=== PATIENT | female | born 1970 | race Two or more races ===

== ENCOUNTER → 2016-11-04 | Outpatient (CLI) | payer OTHER ==
--- NOTE | 2016-11-04 11:56 | MA ---
Screening Digital Mammogram With iCAD Analysis Clinical Indications: Routine screening. Patient has had benign breast biopsies. Technique: Standard cephalocaudal and mediolateral oblique projections are obtained. The examination is processed by the iCAD computer-aided detection system. Comparison: September, September 2013, August 2012, August 2011, May 2008. Breast density: Type C; Heterogeneously dense. Findings: CAD was reviewed. Nodular asymmetries bilaterally are stable. There are no masses, suspicio us calcifications or other signs of malignancy. There has been no significant change in the appearanc e of either breast. Impression: Benign mammography, BI-RADS 2. Recommendation: Routine screening in one year, as long as physical examination is benign, in this pat ient with heterogeneously dense breast parenchyma. [facility] will send a result letter to the patient. Dense breast parenchyma diminishes mammographic sensitivity. Negative mammography should not preclude additional workup of a clinically suspicious finding. The patient's information is entered into a reminder system with a target due date for her next mammo gram.
== END ==
LOC: CIMAGING 09:39
PROVIDERS: ATTEND Family Medicine
DX: Z12.31 Encounter for screening mammogram for malignant neoplasm of breast (principal)
CPT/HCPCS: G0202

== ENCOUNTER → 2017-12-04 | Outpatient (CLI) | payer OTHER | LOC: CIMAGING 09:15 | PROVIDERS: ATTEND Family Medicine | DX: Z12.31 Encounter for screening mammogram for malignant neoplasm of breast (principal) ==

== ENCOUNTER 2019-01-26 05:24 | Emergency (ER) | payer OTHER ==
--- NOTE | 2019-01-26 05:42 | EDPHY ---
H & P Stated Complaint: FEELING "HEAVY" ON L SIDE, CHEST PAIN AND FATIGUE X 2 DAYS. Time Seen by Provider: 01/26/19 05:41 HPI/ROS: CC: weakness increasing over 3 days HPI: This 48-year-old female with past medical history including hyperlipidemia and hypertension presents to emergency department today complaining of feeling weak which has been increasing over the last 3 days. Apparently in October of this year she was evaluated at [facility] for similar symptoms and was found to have a low potassium of 2.8. She states her symptoms today feel the same. After that episode of hypokalemia she has put herself on potassium gluconate 550 mg once daily. She is having generalized weakness with paresthesias on the left side of her body. She states she had a brain MRI in May of 2018 which was normal. She feels a heaviness in her upper chest which radiates through to her back and this causes her to feel slightly short of breath but states "I have chronic costochondritis." She complains of bilateral flank pain. She rates this discomfort and her chest discomfort at 6/10. She also emphasizes that this is not new. She feels full in her abdomen and states she has been constipated. She feels like something is moving in her abdomen. She states when she urinates she only urinates small amounts. She has had nausea without vomiting or diarrhea. She has not been otherwise ill lately. She has seen her learning and development specialist recently and he has recommended she see a neurologist to rule out hypokalemic periodic paralysis. She states she does not have the money to see a neurologist. She has had a stress test and a Lexiscan which revealed only an "elevated pulse rate up to the 160s". She has seen a chiropractor who told her left side of her body is lining brusher than the right side of her body. She does not use tobacco products. There is no premature coronary artery disease in her family although her mother had a stroke at age 42. She has had a hysterectomy. She is not on hormone therapy. REVIEW OF SYSTEMS: Constitutional: No fever, no chills. Eyes: No discharge. ENT: No sore throat. Respiratory: No cough. Cardiac: See HPI. Gastrointestinal: See HPI. Genitourinary: No hematuria or dysuria. See HPI. Musculoskeletal: See HPI. Skin: No rashes. Neurological: Occasional headache. Source: Patient Exam Limitations: No limitations - Personal History LMP (Females 10-55): Hysterectomy Current Tetanus Diphtheria and Acellular Pertussis (TDAP): Yes Tetanus Vaccine Date: < 10 years - Medical/Surgical History PMH: PMH: Hyperlipidemia, hypertension, 1 episode of hypokalemia documented PSH: Ventral herniorrhaphy, x3, hysterectomy FH: Mother had a stroke at age 42 and diabetes mellitus. She is still living. Father is and had a history of diabetes and hypertension. ALLERGY: Cipro - Rash Meds: Losartan 25 mg twice a day, simvastatin, vitamin-D, low-dose aspirin, the patient has put herself on potassium gluconate 550 mg once daily. Primary care provider Dr. Cristy Lopez, learning and development specialist Dr. Vipul Santos Hx Asthma: No Hx Chronic Respiratory Disease: No Hx Diabetes: No Hx Cardiac Disease: Yes Hx Renal Disease: No Hx Cirrhosis: No Hx Alcoholism: No Hx HIV/AIDS: No Hx Splenectomy or Spleen Trauma: No Other PMH: hyperlipids/hernia/c-sections/hypoK+/hyst./. HTN - Social History Smoking Status: Never smoked Additional Social History: The patient is . She does not smoke tobacco products, use alcohol or marijuana or other recreational drugs. - Physical Exam Exam: General Appearance: Alert, anxious. Eyes: Pupils equal and round no pallor or injection. ENT, Mouth: Mucous membranes are moist. Respiratory: There are no retractions, lungs are clear to auscultation. Cardiovascular: Sinus tachycardia. No murmurs, gallops, rubs. Gastrointestinal: Abdomen is soft, with mild diffuse tenderness to palpation. No masses, bowel sounds normal. Neurological: Awake and alert, comprehensive abdominal exam is normal. Skin: Warm and dry, no rashes. Musculoskeletal: Neck is supple, nontender. Extremities are symmetrical, full range of motion. No edema. Psychiatric: Patient is oriented X 3, there is no agitation. DIFFERENTIAL DIAGNOSIS: After history and physical exam differential diagnosis was considered for but not limited to and in no particular order: [] Constitutional: Initial Vital Signs Temperature (C) 98.2 F 01/26/19 05:37 Heart Rate 127 H 01/26/19 05:37 Respiratory Rate 14 01/26/19 05:37 Blood Pressure 154/107 H 01/26/19 05:37 O2 Sat (%) 94 01/26/19 05:37 O2 Delivery Mode Room Air Allergies/Adverse Reactions: ciprofloxacin [From Cipro] Allergy (Verified 01/26/19 05:36) ciprofloxacin HCl [From Cipro] Allergy (Verified 01/26/19 05:36) Home Medications: Medication Instructions Recorded Cholecalciferol (Vitamin D3) 01/26/19 [Vitamin D3] Losartan Potassium [Cozaar 25 mg 01/26/19 (*)] Potassium Gluconate 550 mg 01/26/19 SIMVASTATIN 10 mg PO 01/26/19 Medical Decision Making - Diagnostics EKG Interpretation: EKG showed a sinus tachycardia with a heart rate of 102 and possible left atrial enlargement. Imaging Results: Declined abdominal plain films. ED Course/Re-evaluation: The patient was seen and examined. Vital signs reviewed. Her blood pressure and heart rate were elevated upon arrival. Her EKG showed a sinus tachycardia without acute ischemic changes. A CBC, comprehensive metabolic panel, lactic acid, troponin, and D-dimer were all unremarkable. A UA was negative except for trace blood on urine dip which I suspect is a false positive but the patient should follow this up with her primary care provider. Review of her records from [facility] from October 2018 shows that she was seen for chest discomfort and left-sided weakness as well as paresthesias on the left side. She was found to have a potassium of 2.8 of unclear etiology. Magnesium was normal. She was hypertensive at that time and a serum aldosterone was checked and was normal. She was offered a stress test but declined due to cost. A neurology consultation was also recommended but she refused also due to concern over cost. In November of this year she had thyroid studies which were reviewed and normal. Patient was given a L of IV fluids, she declined any medications. She also declined abdominal plain films to rule out ileus or obstruction and to evaluate the extent of her constipation. She had taken her losartan prior to coming to the hospital and her blood pressure was improved but not normal at discharge. Her heart rate was under 100 beats per minute at discharge. We discussed the differential diagnosis for her symptoms at length. And, although uncommon, I have asked her to discuss with her primary care provider if it would be reasonable to work her up for a pheochromocytoma. I have also asked her to discuss whether her primary care provider or learning and development specialist might consider a beta onelia for her hypertension which would also likely improve her tachycardia. She should call 1st thing in the morning to follow up with her primary care provider regarding her symptoms, her elevated blood pressure, the blood in her urine and any other concerns. She should return to the emergency room should she have any change or worsening in her symptoms. She is comfortable going home , all her questions were answered. I feel she is safe to go home and follow up with her primary care provider. - Data Points Medications Given: Discontinued Medications Sodium Chloride (Ns) 1,000 mls @ 0 mls/hr IV EDNOW ONE; Wide Open PRN Reason: Protocol Stop: 01/26/19 06:04 Last Admin: 01/26/19 06:05 Dose: 1,000 mls Point of Care Test Results: CBC CBC Collection Date 01/26/19 CBC Collection Time 05:50 WBC 7.43 RBC 5.49 HGB 16.7 HCT 47.1 PLT 279 Neut # 4.44 Neut 59.8 LYMPH # 2.31 LYMPH 31.1 MCV 85.8 Chemistry 01/26/19 01/26/19 05:46 05:41 POC Sodium 140 mEq/L mEq/L (135-145) POC Potassium 3.7 mEq/L mEq/L (3.3-5.0) POC Chloride 104.0 mEq/L mEq/L (97-110) POC Total CO2 26 mEq/L mEq/L (22-31) POC BUN 8 mg/dL mg/dL (7-23) POC Creatinine 0.7 mg/dL mg/dL (0.6-1.0) POC Glucose 116 mg/dL H mg/dL (70-100) POC Calcium 9.7 mg/dL mg/dL (8.5-10.4) POC Total Bilirubin 1.0 mg/dL mg/dL (0.1-1.4) POC AST 27 IU/L IU/L (14-46) POC ALT 32 IU/L IU/L (9-52) POC Alk Phosphatase 54 IU/L IU/L (38-126) POC Troponin I 0.00 ng/mL ng/mL (0.00-0.08) POC Total Protein 8.1 g/dL g/dL (6.3-8.2) POC Albumin 4.2 g/dL g/dL (3.5-5.0) Blood Gas/Lactic Acid-Arterial 01/26/19 05:47 POC Blood Source VENOUS Blood Gas/Lactic Acid-Venous 01/26/19 05:47 POC VBG pH 7.42 (7.31-7.42) POC VBG pCO2 36 mmHg L mmHg (40-44) POC VBG pO2 42 mmHg H mmHg (35-40) POC VBG HCO3 23 mEq/L mEq/L (22-26) POC VBG Total CO2 24 mEq/L mEq/L (21-27) POC VBG Base Excess -1.0 mEq/L mEq/L (-2.5-2.5) POC Mix VBG O2 Sat 80 % H % (65-75) POC Lactic Acid Micheal 1.5 mmol/L mmol/L (0.7-2.1) D-Dimer D-Dimer Collection Date 01/26/19 D-Dimer Collection Time 05:50 D-Dimer (ng/ml) <100ng/ml Urine Dip Collection Date 01/26/19 Collection Time 06:08 Specific [place] (1.002-1.030) 1.020 PH (5.0-7.5) 7.5 Leukocytes (Negative) Negative Nitrites (Negative) Negative Protein (Negative) Negative Glucose (Negative) Negative Ketones (Negative) Negative Urobilnogen (0.2-1.0 EU) 0.2 Bilirubin (Negative) Negative Blood (Negative) Trace Departure - Departure Disposition: Home, Routine, Self-Care Clinical Impression: Sinus tachycardia, Bilateral flank pain, Chest heaviness Condition: Good Instructions: Chest Pain (ED), Constipation (ED), Abdominal Pain (ED), Flank Pain (ED), Tachycardia (ED) Additional Instructions: Called Dr. Lopez today to set up an appointment for this week. Ask if she thinks it is clinically indicated to evaluate you not only for the familial hypokalemic periodic paralysis, but also pheochromocytoma. Ask your learning and development specialist if a beta-onelia for your hypertension would also help with your chronically elevated heart rate. Rest, drink plenty of fluids. Consider changes in your diet to help with your constipation. If you're abdominal pain or nausea gets worse you will need to be re-evaluated in the ER. Return to the ER for any further problems or concerns and not able to wait for follow-up with her primary care provider. Referrals: NONE *PRIMARY CARE P,. [Primary Care Provider] - As per Instructions Vipul Santos MD [Medical Doctor] - As per Instructions Cristy Lopez MD [Medical Doctor] - 1-2 days without fail
[2019-01-26] MEDS ORDERED: NS 1,000 ML IV ONE (06:03)
[2019-01-26 07:17] VITALS: BP 126/72
--- NOTE | 2019-01-27 03:40 | CPEKG ---
Test Reason : OPEN Blood Pressure : / mmHG Vent. Rate : 102 BPM Atrial Rate : 101 BPM P-R Int : 143 ms QRS Dur : 091 ms QT Int : 338 ms P-R-T Axes : 072 086 053 degrees QTc Int : 441 ms Sinus tachycardia Probable left atrial enlargement Confirmed by Jennifer Tran ([id number]) on 01/27/2019 3:40:09 AM Referred By: PHYSICIAN ED Confirmed By:Jennifer Tran
== END 2019-01-26 07:20 | disposition home or self-care (01) ==
LOC: CED 05:24
DX: R07.89 Other chest pain (principal); R00.0 Tachycardia, unspecified; R10.84 Generalized abdominal pain; E78.5 Hyperlipidemia, unspecified; I10 Essential (primary) hypertension; E86.9 Volume depletion, unspecified
CPT/HCPCS: 80053-ER; 83605-ER; 84484-ER; 85025-QW-ER; 85379-QW-ER; 96360-ER; 99284-ER